=== PATIENT | female | born 1990 | race Caucasian/White ===

== ENCOUNTER 2016-04-26 12:48 | Emergency (ER) | payer OTHER ==
[2016-04-26 12:59] VITALS: BP 145/86; PULSE 84; RESP 20; TEMP 98.5
--- NOTE | 2016-04-26 13:13 | ED ---
ENT HPI - General Chief complaint: Dental/Oral Stated complaint: Dental Time Seen by Provider: 04/26/16 13:00 Source: patient Mode of arrival: ambulatory Limitations: no limitations - History of Present Illness Initial comments: Patient is a 25-year-old patient female presenting to the emergency department with toothache onset 2 days ago. Patient states she woke up this morning and felt like the right side of her mouth was swollen. Patient denies chills, fevers, nausea, vomiting, shortness of breath, chest pain, or abdominal pain. Patient denies difficulty swallowing or trismus. Patient denies ear pain. Patient denies previous antibiotic use in the last 30 days. Patient states she is on control and denies and refuses me for test. Treatment prior to arrival included Motrin 800 and Tylenol. Patient states that her dentist is in [place]. complaint: tooth pain Onset/Timin -: days(s) Location: tooth # (14) Severity: moderate Severity scale (1-10): 7 Quality: aching Consistency: constant Improves with: NSAID Worsens with: eating Context- Dental: history of dental caries, poor dental care Associated Symptoms: gum swelling - Related Data Previous Rx's Medication Instructions Recorded Acetaminophen-Codeine 300-30mg 1 - 2 tab PO Q4H PRN #20 tablet 04/26/16 [Tylenol #3] Penicillin V Potassium [Pen Vee K] 500 mg PO QID #28 tab 04/26/16 Allergies Allergy/AdvReac Type Severity Reaction Status Date / Time No Known Allergies Allergy Verified 04/26/16 12:59 Review of Systems ROS Statement: Those systems with pertinent positive or pertinent negative responses have been documented in the HPI. ROS Other: All systems not noted in ROS Statement are negative. Past Medical History Additional Past Medical History / Comment(s): history post depression medicated. takes celexa when not preg. states anxiety, bipolar, ptsd, insomnia. History of Any Multi-Drug Resistant Organisms: None Reported Additional Past Surgical History / Comment(s): jaw tumor removed, d&c, colonoscopy Past Anesthesia/Blood Transfusion Reactions: No Reported Reaction Past Psychological History: Anxiety, Bipolar, Depression, PTSD Smoking Status: Current every day smoker Past Alcohol Use History: None Reported Past Drug Use History: Marijuana Additional Drug Use History / Comment(s): states used last about 2 months ago. - Past Family History Mother Family Medical History: Hypertension General Exam Limitations: no limitations General appearance: alert, in no apparent distress Head exam: Present: atraumatic, normocephalic, normal inspection ENT exam: Present: normal oropharynx, mucous membranes moist, TM's normal bilaterally, normal external ear exam Expanded Ear exam: Present: normal external inspection Teeth exam: Present: dental caries, dental tenderness # (14), gingival enlargement (adjacent to tooth #14) Throat exam: normal inspection. negative: tonsillar erythema, tonsillomegaly, tonsillar exudate, R peritonsillar mass, L peritonsillar mass Neck exam: Present: normal inspection, full ROM. Absent: tenderness, meningismus, lymphadenopathy Respiratory exam: Present: normal lung sounds bilaterally. Absent: respiratory distress, wheezes, rales, rhonchi, stridor Cardiovascular Exam: Present: regular rate, normal rhythm, normal heart sounds. Absent: systolic murmur, diastolic murmur, rubs, gallop, clicks GI/Abdominal exam: Present: soft, normal bowel sounds. Absent: distended, tenderness, guarding, rebound, rigid Neurological exam: Present: alert, oriented X3, CN II-XII intact Psychiatric exam: Present: normal affect, normal mood Skin exam: Present: warm, dry, intact, normal color. Absent: rash Course Vital Signs 04/26/16 12:57 Temperature 98.5 F Pulse Rate 84 Respiratory 20 Rate Blood Pressure 145/86 O2 Sat by Pulse 100 Oximetry Medical Decision Making - Medical Decision Making Patient is a 25-year-old female presenting with dental pain and gingival swelling to tooth #14, no evidence of obvious abscess. Patient given prescription for penicillin for empiric coverage and pain medication and instructed to follow-up with dentist. Patient agrees with treatment plan. Discharge instructions and return parameters reviewed. Disposition Clinical Impression: Dental caries, Toothache Disposition: HOME SELF-CARE Condition: Good Instructions: Toothache (ED), Dental Caries (ED) Additional Instructions: Please finish antibiotics as prescribed. May take Tylenol 3 1 to 2 tablets every 4 hours as needed for pain and Motrin 800 every 8 hours as necessary for pain. Apply warm compresses for relief. Follow-up with dentist as directed in [place]. Please return to the emergency department if symptoms do not improve or get worse. Prescriptions: Acetaminophen-Codeine 300-30mg [Tylenol #3] 1 - 2 tab PO Q4H PRN #20 tablet PRN Reason: Pain Penicillin V Potassium [Pen Vee K] 500 mg PO QID #28 tab Referrals: None,Stated [Primary Care Provider] - 1-2 days Time of Disposition: 13:12
== END 2016-04-26 13:23 | disposition home or self-care (01) ==
LOC: EC 12:48
DX: K02.9 Dental caries, unspecified (principal); F17.200 Nicotine dependence, unspecified, uncomplicated; K08.89 Other specified disorders of teeth and supporting structures
CPT/HCPCS: 99282

== ENCOUNTER 2016-08-16 19:10 | Emergency (ER) | payer OTHER ==
[2016-08-16] MEDS ORDERED: ORPHENADRINE 30 MG/ML 2 ML VIAL IM STA (19:32)
[2016-08-16] MEDS ORDERED: KETOROLAC 60 MG/2 ML VIAL IM STA (19:32)
--- NOTE | 2016-08-16 19:39 | ED ---
Back Pain HPI - General Chief Complaint: Back Pain/Injury Stated Complaint: Back Pain Time Seen by Provider: 08/16/16 19:21 Source: patient, RN notes reviewed Limitations: no limitations - History of Present Illness Initial Comments: 25-year-old female presents to the emergency Department chief complaint of back pain. Patient has developed this back pain last day or so. Patient states that she does an increased amount of lifting at work. Patient states that at work she started to develop this back pain that shoots down the left leg. Patient states that she has no weakness to the leg. No loss of bowel or bladder function. Patient states she has no nausea or vomiting. Patient states she was concerned due to the continued back pain so she thought that she should be evaluated. Patient states that there is no fall or injury but just a lot of lifting at work. Patient states she had to leave work last night early due to the pain. Patient denies any recent fever, chills, shortness of breath, chest pain, abdominal pain, nausea vomiting, dysuria or hematuria, constipation or diarrhea, headaches or visual changes, or any other current symptoms. - Related Data Home Medications Medication Instructions Recorded Confirmed Acetaminophen Tab [Tylenol Tab] 650 mg PO Q4H PRN 08/16/16 08/16/16 Previous Rx's Medication Instructions Recorded Ibuprofen [Motrin] 600 mg PO Q6HR PRN #20 tab 08/16/16 Orphenadrine [Norflex] 100 mg PO Q12H #10 tablet.er 08/16/16 Allergies Allergy/AdvReac Type Severity Reaction Status Date / Time No Known Allergies Allergy Verified 08/16/16 19:19 Review of Systems ROS Statement: Those systems with pertinent positive or pertinent negative responses have been documented in the HPI. ROS Other: All systems not noted in ROS Statement are negative. Past Medical History Additional Past Medical History / Comment(s): history post depression medicated. takes celexa when not preg. states anxiety, bipolar, ptsd, insomnia. History of Any Multi-Drug Resistant Organisms: None Reported Additional Past Surgical History / Comment(s): jaw tumor removed, d&c, colonoscopy Past Anesthesia/Blood Transfusion Reactions: No Reported Reaction Past Psychological History: Anxiety, Bipolar, Depression, PTSD Smoking Status: Current every day smoker Past Alcohol Use History: None Reported Past Drug Use History: None Reported Additional Drug Use History / Comment(s): states used last about 2 months ago. - Past Family History Mother Family Medical History: Hypertension General Exam Limitations: no limitations General appearance: alert, in no apparent distress Head exam: Present: atraumatic, normocephalic, normal inspection ENT exam: Present: normal exam, mucous membranes moist Neck exam: Present: normal inspection. Absent: tenderness, meningismus, lymphadenopathy Respiratory exam: Present: normal lung sounds bilaterally. Absent: respiratory distress, wheezes, rales, rhonchi, stridor Cardiovascular Exam: Present: regular rate, normal rhythm, normal heart sounds. Absent: systolic murmur, diastolic murmur, rubs, gallop, clicks Back exam: Present: normal inspection, full ROM, tenderness (Diffuse) Neurological exam: Present: alert, oriented X3. Absent: CN II-XII intact, motor sensory deficit Psychiatric exam: Present: normal affect, normal mood Skin exam: Present: warm, dry, intact, normal color. Absent: rash Course Vital Signs 08/16/16 19:13 Temperature 98.4 F Pulse Rate 90 Respiratory 20 Rate Blood Pressure 152/93 O2 Sat by Pulse 97 Oximetry Medical Decision Making - Medical Decision Making 25 yo female presents with lumbar back pain. There is some x-rays reviewed and negative. Patient also has a lumbar strain with radiation. We discussed. The doctor return parameters. She was started muscle relaxers and pain medication. All the questions were answered.. She states she understood the plan. She will be discharged. - Radiology Data Radiology results: report reviewed, image reviewed Disposition Clinical Impression: Strain of lumbar region Disposition: HOME SELF-CARE Condition: Stable Instructions: Acute Low Back Pain (ED) Additional Instructions: Please use medication as discussed. Please follow up with family doctor if symptoms have not improved over the next two days. Please return to the emergency room if your symptoms increase or worsen or for any other concerns. Prescriptions: Ibuprofen [Motrin] 600 mg PO Q6HR PRN #20 tab PRN Reason: Pain Orphenadrine [Norflex] 100 mg PO Q12H #10 tablet.er Referrals: Moses Reyna MD [STAFF PHYSICIAN] - 1-2 days Time of Disposition: 20:50
[2016-08-16 21:08] VITALS: BP 127/57; PULSE 65; RESP 18; TEMP 98.2
--- NOTE | 2016-08-16 22:07 | XR ---
EXAMINATION TYPE: XR lumbar spine 2 or 3V DATE OF EXAM: 08/16/2016 7:45 PM CLINICAL HISTORY: Pain that radiates down left leg for 2 days. TECHNIQUE: Frontal and lateral images of the lumbar spine are obtained. COMPARISON: None FINDINGS: There are 5 lumbar type vertebral bodies identified. The lumbar spine shows satisfactory alignment without evidence of acute fracture or dislocation. Vertebral body heights and disk space he ights are within normal limits. No significant spurring is seen. The overlying soft tissue appears un remarkable. IMPRESSION: No acute fracture or dislocation is seen in the lumbar spine. Unremarkable study.
== END 2016-08-16 21:08 | disposition home or self-care (01) ==
LOC: EC 19:10
DX: S39.012A Strain of muscle, fascia and tendon of lower back, initial encounter (principal); X50.9XXA Other and unspecified overexertion or strenuous movements or postures, initial encounter; Y99.0 Civilian activity done for income or pay; F17.200 Nicotine dependence, unspecified, uncomplicated
CPT/HCPCS: 72100; 99283; 96372 ×2; J2360; J1885

== ENCOUNTER 2016-10-10 14:58 | Emergency (ER) | payer OTHER ==
--- NOTE | 2016-10-10 15:53 | ED ---
Chest Pain HPI - General Chief Complaint: Chest Pain Stated Complaint: chest pain/anxiety Time Seen by Provider: 10/10/16 15:17 Source: patient, RN notes reviewed Mode of arrival: ambulatory Limitations: no limitations - History of Present Illness Initial Comments: 25-year-old female presents emergency for anxiety, panic attacks. Patient states that she is out of her Klonopin. Patient states that she is not really required much of her Klonopin until recent because of her son who . Patient states that she is not suicidal or homicidal. Patient is here with family who is her support group. Patient does have an appointment with psychiatrist in one week. - Related Data Previous Rx's Medication Instructions Recorded clonazePAM [KlonoPIN] 0.5 mg PO BID #20 tablet 10/10/16 Allergies Allergy/AdvReac Type Severity Reaction Status Date / Time No Known Allergies Allergy Verified 10/10/16 15:16 Review of Systems ROS Statement: Those systems with pertinent positive or pertinent negative responses have been documented in the HPI. ROS Other: All systems not noted in ROS Statement are negative. EKG Findings - EKG Comments: EKG Findings:: EKG performed at 15:17 normal sinus rhythm with a rate of 72 ND 136 stressors 84 QT/QTC 394/431 Past Medical History Additional Past Medical History / Comment(s): history post depression medicated. takes celexa when not preg. states anxiety, bipolar, ptsd, insomnia. History of Any Multi-Drug Resistant Organisms: None Reported Additional Past Surgical History / Comment(s): jaw tumor removed, d&c, colonoscopy Past Anesthesia/Blood Transfusion Reactions: No Reported Reaction Past Psychological History: Anxiety, Bipolar, Depression, PTSD Smoking Status: Current every day smoker Past Alcohol Use History: None Reported Past Drug Use History: None Reported - Past Family History Mother Family Medical History: Hypertension General Exam Limitations: no limitations General appearance: alert, in no apparent distress Respiratory exam: Present: normal lung sounds bilaterally. Absent: respiratory distress, wheezes, rales, rhonchi, stridor Cardiovascular Exam: Present: regular rate, normal rhythm, normal heart sounds. Absent: systolic murmur, diastolic murmur, rubs, gallop, clicks Neurological exam: Present: alert, oriented X3, CN II-XII intact, reflexes normal. Absent: motor sensory deficit Psychiatric exam: Present: flat affect Skin exam: Present: warm, dry, intact, normal color. Absent: rash Course Vital Signs 10/10/16 15:01 Temperature 97.5 F L Pulse Rate 93 Respiratory 18 Rate Blood Pressure 122/77 O2 Sat by Pulse 98 Oximetry Chest Pain MDM - MDM Patient will be given refill of her anxiety medication at this time. Patient's chest discomfort is related to her anxiety. Disposition Clinical Impression: Anxiety Disposition: HOME SELF-CARE Condition: Stable Instructions: Anxiety (ED) Additional Instructions: Please return to the Emergency Department if symptoms worsen or any other concerns. Prescriptions: clonazePAM [KlonoPIN] 0.5 mg PO BID #20 tablet Referrals: Julita Cornelius MD [Primary Care Provider] - 1-2 days Time of Disposition: 15:53
[2016-10-10 15:59] VITALS: BP 115/58; PULSE 77; RESP 16; TEMP 98.1
== END 2016-10-10 16:01 | disposition home or self-care (01) ==
LOC: EC 14:58
DX: F41.9 Anxiety disorder, unspecified (principal); Z76.0 Encounter for issue of repeat prescription; F17.200 Nicotine dependence, unspecified, uncomplicated
CPT/HCPCS: 93005; 99284